=== PATIENT | female | born 1995 | race Caucasian/White ===

== ENCOUNTER 2020-02-02 14:54 | Emergency (ER) | payer OTHER, SELFPAY ==
[2020-02-02 15:05] VITALS: BP 163/99; PULSE 78; RESP 16; TEMP 37.3; O2SAT 98
--- NOTE | 2020-02-02 15:22 | ECG_ITS ---
Measurements Intervals [place] Rate: 53 P: 66 NM: 154 QRS: 60 QRSD: 100 T: 44 QT: 425 QTc: 402 Interpretive Statements SINUS BRADYCARDIA INCOMPLETE RIGHT BUNDLE BRANCH BLOCK BORDERLINE ECG Electronically Signed On 02-02-2020 16:15:53 CDT by Rashi Deleon D.O.
--- NOTE | 2020-02-02 15:23 | ED.EXTPRO ---
HPI - Extremity Problem General Chief complaint: Extremity Problem,Nontraumatic Stated complaint: left arm pain Source: patient Mode of arrival: ambulatory Limitations: no limitations History of Present Illness HPI Narrative: this is a 24-year-old female that presents with some numbness and tingling with some dull aching in her left arm and wrist that is been off and on and called her primary care physician and advised her to be seen in the emergency department currently there is no injuries the patient has good range of motion in her left upper arm and has good range of motion in her wrist although there is some numbness and tingling elicited with some progress provocative movements of her left wrist. Has a good strong brisk radial pulse left no neck tenderness with palpation has good range of motion of her neck with no injuries. The patient does complain that she has an occasional palpitations. With no chest pain no nausea vomiting no abdominal pain no shortness of breath. Complaint: extremity pain Onset (ago): day(s) Pain Consistency: intermittent Location: left Quality: dull and other ( numbness and tingling) Radiation: none Relieving factors: immobilization Exacerbating factors: nothing Associated symptoms: denies other symptoms Related Data Home Medications Medication Instructions Recorded Confirmed citalopram 40 mg PO DAILY 02/02/20 02/02/20 clonazepam [Klonopin] 0.5 mg PO DAILY PRN 02/02/20 02/02/20 Allergies Allergy/AdvReac Type Severity Reaction Status Date / Time No Known Allergies Allergy Verified 02/02/20 15:23 Review of Systems Review of Systems: All systems reviewed & are unremarkable except as noted in HPI and below PMFSH Past Medical History Medical History Patient denies medical problems Exam Const: General: no acute distress and alert Nutritional Appearance: well nourished Orientation/consciousness: patient oriented x3 HENMT: Head: normal to inspection Eyes: Conjunctivae: conjunctivae normal Pupils: Equal, round and reactive pupils present Neck: Neck: normal visual inspection Chest: Chest palpation & inspection: normal inspection of the chest Resp: Effort & Inspection: normal respiratory effort Auscultation: clear to auscultation bilaterally Cardio: Rate: regular rate Rhythm: regular rhythm GI: GI Palp: Yes Soft to palpation Back/Spine/Pelvis: Back: no CVA tenderness Skin: General skin exam: normal color Rashes: no rashes Neuro: Other: Positive Phalen in positive tinnel on the left Extrem: General: normal to inspection Psych: Mental Status: mental status grossly normal Course Course Emergency Course: reassessment of patient she is doing well currently no wrist or arm pain at the moment, and will even with history of palpitations currently not having any palpitations no chest pain. Vital Signs Vital signs: Vital Signs Temperature 37.3 C 02/02/20 15:05 Pulse Rate 78 02/02/20 15:05 Respiratory Rate 16 02/02/20 15:05 Blood Pressure 163/99 H 02/02/20 15:05 Pulse Oximetry 98 02/02/20 15:05 Temperature 37.3 C 02/02/20 15:05 Pulse Rate 78 02/02/20 15:05 Respiratory Rate 16 02/02/20 15:05 Blood Pressure 163/99 H 02/02/20 15:05 Pulse Oximetry 98 02/02/20 15:05 MDM - Extremity (Nontraumatic) ECG Data EKG #1: ECG completion date: 02/02/20 ECG completion time: 15:42 Prior ECG tracings: not available for review Ischemic changes: other ( Right ventricular conductio) EKG Interpretation: bradycardia Critical Care Time Critical Care Time Critical Care Time: No Discharge Plan Discharge Clinical Impression: Right ventricular conduction delay Carpal tunnel syndrome Qualifiers: Laterality: left Qualified Code(s): G56.02 - Carpal tunnel syndrome, left upper limb Patient Disposition: Home, Self-Care Condition: Stable Instructions
[2020-02-02 16:00] VITALS: RESP 16
== END 2020-02-02 16:00 | disposition home or self-care (01) ==
PROVIDERS: Emergency Provider Emergency Medicine
DX: I45.89 Other specified conduction disorders (principal)
CPT/HCPCS: 93005; 99283

== ENCOUNTER 2020-04-21 13:48 | Emergency (ER) | payer OTHER, SELFPAY ==
--- NOTE | ~2020-04-21 | XR_ITS ---
EXAMINATION: XR finger 2nd RT min 2V EXAM DATE: 04/21/2020 14:19 INDICATION: Initial encounter following injury, with pain of the right 2nd finger. TECHNIQUE: Right 2nd finger frontal, lateral and oblique projections obtained and reviewed. There is no prior study for comparison. FINDINGS: There are no acute fractures or dislocations identified. There is no subcutaneous gas. Th e soft tissue is unremarkable. There are no radiopaque foreign bodies. IMPRESSION: 1. Right 2nd finger exam without acute osseous findings. Reviewed, dictated and finalized at location B.
[2020-04-21 14:01] VITALS: BP 125/78; PULSE 61; RESP 14; TEMP 36.8; O2SAT 99
--- NOTE | 2020-04-21 14:10 | ED.UPPEXIN ---
HPI - Extremity Injury (Upper) General Chief Complaint: Extremity Injury, Upper Stated Complaint: finger on right hand injury Time Seen by Provider: 04/21/20 14:10 Source: patient and RN notes reviewed History of Present Illness HPI narrative: Patient is a 24-year-old female who presents the urgent care with complaints of a crushing injury to the right index finger. Patient states that on Sunday she got it stuck in the patio door and the pain is now radiating up the right arm. Patient has used a metal splint as well as ibuprofen. Patient states her main concern is the damage to the fingernail as well as her being right-hand dominant and bartending. Patient denies of any fever, nausea, vomiting. No other acute complaints. No acute distress noted. Patient aware of the plan of care. Some parts of this dictation were generated by voice recognition software and may contain typographical and/or grammatical inaccuracies. Related Data Home Medications Medication Instructions Recorded Confirmed citalopram 40 mg PO DAILY 02/02/20 04/21/20 clonazepam [Klonopin] 0.5 mg PO DAILY PRN 02/02/20 04/21/20 Allergies Allergy/AdvReac Type Severity Reaction Status Date / Time No Known Allergies Allergy Verified 04/21/20 14:09 Review of Systems Review of Systems: Narrative: CONSTITUTIONAL: Denies fever, chills, or sweats. EYES: Denies visual changes, redness, or discharge. ENT: Denies rhinorrhea, congestion, sore throat, or otalgia. CARDIOVASCULAR: Denies chest pain, palpitations, or edema. RESPIRATORY: Denies cough or dyspnea. GASTROINTESTINAL: Denies abdominal pain, nausea, vomiting, or diarrhea. GENITOURINARY: Denies dysuria or hematuria. SKIN: Denies rash or itching. MUSCULOSKELETAL: Reports of right index finger pain NEUROLOGIC: Denies headache, numbness, or weakness. All other systems reviewed are negative, except as documented in HPI. PMFSH Comments At the time of my signature, I reviewed and agree with the nursing past medical, surgical, social, and family history. There is no relevant family history pertinent to the patient complaint. Exam Narrative: Exam Narrative: GENERAL: This is a well-nourished, well-developed patient, in no apparent distress. HEAD: normocephalic, atraumatic. EYES: PERRL. Sclera clear/white. Vision is grossly intact. EARS: External ears normal NOSE: External nose normal with no obvious nasal discharge, nares without redness, no rhinorrhea. THROAT: Mucous membranes moist NECK: Neck supple SKIN: warm, intact with no suspicious lesions or rash, good texture and turgor. NEURO: awake, alert, and oriented to person, place and time. There were no obvious focal neurologic abnormalities. EXTREMITIES: Mild erythema surrounding the nailbed of the right index finger as well as notable nail damage to the right index finger. Capillary refill less than 2 seconds to affected finger and positive strong right radial pulse. Course Vital Signs Vital signs: Vital Signs Temperature 98.3 F 04/21/20 14:01 Pulse Rate 61 04/21/20 14:01 Respiratory Rate 14 04/21/20 14:01 Blood Pressure 125/78 04/21/20 14:01 Pulse Oximetry 99 04/21/20 14:01 Temperature 98.3 F 04/21/20 14:01 Pulse Rate 61 04/21/20 14:01 Respiratory Rate 14 04/21/20 14:01 Blood Pressure 125/78 04/21/20 14:01 Pulse Oximetry 99 04/21/20 14:01 Reviewed MDM - Extremity Injury (Upper) MDM Narrative Medical decision making narrative: Reviewed x-ray results with the patient. She is aware the x-ray was negative for notable fracture. Advised the patient continue wearing the splint as needed for comfort. Use ice as needed. Take Tylenol/ibuprofen as needed for pain. Advised the patient to do a plain Dial soap and water soaks twice a day. Use a finger cot over the finger while at work. Complete oral antibiotic regimen as prescribed. Make sure to eat and drink with the medication. Follow-up immediately if you develop any increas
--- NOTE | 2020-04-21 14:19 | PC.NURSE ---
PT DECLINED ICE FOR COMFORT
== END 2020-04-21 14:54 | disposition home or self-care (01) ==
PROVIDERS: Emergency Provider Nurse Practitioner Family
DX: S60.121A Contusion of right index finger with damage to nail, initial encounter (principal); W23.0XXA Caught, crushed, jammed, or pinched between moving objects, initial encounter; F41.9 Anxiety disorder, unspecified
CPT/HCPCS: 73140; 99213; G0463